=== PATIENT | female | born 1940 | race Caucasian/White ===

== ENCOUNTER → 2017-05-15 | Outpatient (CLI) | payer BC, OTHER | LOC: FIMAGING 10:01 | PROVIDERS: ATTEND Internal Medicine | DX: Z12.31 Encounter for screening mammogram for malignant neoplasm of breast (principal) | CPT/HCPCS: G0202 ==

== ENCOUNTER → 2018-08-26 | Outpatient (CLI) | payer OTHER | LOC: FIMAGING 08:46 | PROVIDERS: ATTEND Internal Medicine | DX: Z12.31 Encounter for screening mammogram for malignant neoplasm of breast (principal) ==

== ENCOUNTER 2019-02-23 15:22 | Observation (INO) | payer OTHER ==
--- NOTE | 2019-02-23 15:36 | EDPHY ---
H & P Time Seen by Provider: 02/23/19 15:31 HPI/ROS: HPI The can call fall yesterday. Lower back pain. 78-year-old female by private vehicle with her daughter and . This patient [place] [facility] [place] She misjudged a door and felt backwards landing on her buttocks. She did not hit her head. She reports that since this time she has had mid lower back pain in the lumbar spine region. She denies any bowel or bladder incontinence. No loss of sensation or weakness in her extremities. She has no history of cancer. Denies any abdominal pain. Denies any extremity pain. She states that the pain is made worse with movement and ambulating. The pain is described as sharp and aching and intermittent in nature. She has had some associated nausea with the pain but no vomiting. ROS: Constitutional: No fever, no chills. No weakness. Eyes: No discharge. No changes in vision. ENT: No sore throat. No nasal congestion or rhinorrhea. Respiratory: No cough. No shortness of breath. Cardiac: No chest pain, no palpitations. Gastrointestinal: No abdominal pain, no vomiting, no diarrhea. As above. Genitourinary: No hematuria. No dysuria or increased frequency with urination. Musculoskeletal: As above. No neck pain. No myalgias or arthralgias. Skin: No rashes. Neurological: No headache. No focal weakness or altered sensation. Past medical history: Hypothyroidism she takes Synthroid. Hypertension. Sleep apnea. She uses CPAP with oxygen at night. Social history: Former smoker. Here with her and daughter. Daughter in 2 other children live nearby. No alcohol. Physical Exam: General Appearance: Alert, no distress. This patient is responding to questions appropriately and in full sentences. This patient appears well- hydrated and well-nourished. Head: Normocephalic atraumatic. Face: Facial bones are stable on palpation. Eyes: Pupils equal and round and reactive to light, no pallor or injection. No lid erythema or edema. Respiratory: There are no retractions, lungs are clear to auscultation with good air movement bilaterally. Chest wall is stable to AP and lateral palpation. Cardiovascular: Regular rate and rhythm. No murmur. Gastrointestinal: Abdomen is soft and nontender, no masses, bowel sounds normal. Neurological: Motor sensory function is intact. Cranial nerves are normal. Cerebellar function intact. Skin: Warm and dry, no rashes. No lacerations, abrasions or contusions. Musculoskeletal: Neck is supple and nontender. The trachea is midline. No midline cervical, thoracic, lumbar or sacral tenderness on palpation. She has vague paraspinal pain bilaterally L2 through L3. It is mild in nature. No soft tissue changes associated. No flank tenderness on palpation. Extremities are symmetrical, full range of motion. All joints in the bilateral upper and bilateral lower extremities range without pain or impingement. No tenderness on palpation of the long bones in the bilateral upper and bilateral lower extremities. Psychiatric: No agitation. No depression. Database: EKG: Imaging: LS spine x-ray series: Significant for an L2 vertebral compression fracture. Estimated height loss is 50%. Interpreted by me. Procedures: Emergency department course: Triage vital signs reviewed and are normal. The patient has been taking ibuprofen as well as Tylenol. She declines stronger pain medication. I did discussed giving her Flexeril as well. She declines this medication. LS spine x-ray series to be obtained. 4:30 p.m., the patient was re-evaluated, she is resting comfortably at this time. Repeat neurologic Assessment is nonfocal. I discussed the results of her x-ray and diagnosis with her family. She has not required any pain medication in the emergency department. She states that she is able to ambulate to the bathroom on her own at home without significant difficulty. I did discuss admission with her. She currently lives with her and her daughters live nearby. She does not want to be admitted to the hospital and does feel comfortable going home. I will discuss the case with interventional radiology to consider kyphoplasty and follow up with them. 4:45 p.m., the patient and family have decided that they do feel more comfortable with the patient being admitted to the hospitalist service. I spoke with Dr. Gilson Sauceda of the hospitalist service. The case was discussed in detail with him. He accepts this patient for admission. I then spoke with Dr. Magy Serna of the interventional radiology service. She reviewed the patient's x -rays. She will consult on the patient in the morning regarding kyphoplasty. At this time neuro spine surgery consultation will be deferred to the hospitalist service. This plan was discussed with the patient and family. Repeat neurologic assessment on the patient is nonfocal. All of the family's questions were answered. The patient will be transferred by ambulance to the [facility]. An IV is was established in the emergency department. The patient was transferred in stable condition to the [facility]. I filled out the appropriate transfer paperwork. Differential Diagnosis: The differential diagnosis on this patient includes but is not limited to lumbar sacral strain, lumbar compression fracture. Epidural compression syndrome, acute radiculopathy, AAA, epidural abscess, unlikely. This represents a partial list of diagnoses considered. These considerations are based on history, physical exam, past history, reassessment and diagnostic testing. Constitutional: Initial Vital Signs Temperature (C) 36.9 C 02/23/19 15:31 Heart Rate 74 02/23/19 15:31 Respiratory Rate 18 02/23/19 15:31 Blood Pressure 137/79 H 02/23/19 15:31 O2 Sat (%) 86 L 02/23/19 15:31 O2 Delivery Mode Room Air Allergies/Adverse Reactions: No Known Allergies Allergy (Verified 02/23/19 18:56) Home Medications: Medication Instructions Recorded Acetaminophen [Tylenol ES 500 mg 500 mg PO Q8H PRN 02/23/19 (*)] Ascorbic Acid [Vitamin C 500 mg 500 mg PO BID 02/23/19 (*)] Aspirin [Aspirin 81mg (*)] 81 mg PO HS 02/23/19 Calcium Carbonate [Tums 500MG (*)] 500 mg PO TID PRN 02/23/19 Ibuprofen [Motrin (*)] 600 mg PO Q8H PRN 02/23/19 Levothyroxine Sodium 88 mcg PO DAILY06 02/23/19 Losartan/Hydrochlorothiazide 1 each PO DAILY 02/23/19 [Losartan-Hctz 100-25 mg Tab] Metoprolol Tartrate [Lopressor 50 50 mg PO BID 02/23/19 mg (*)] Simvastatin [Zocor] 20 mg PO HS 02/23/19 amLODIPine BESYLATE [Amlodipine 5 mg PO HS 02/23/19 Besylate] Medical Decision Making - Diagnostics Imaging Results: Imaging Impressions Lumbar Spine X-Ray 02/23/19 15:32 Impression:L2 compression fracture, moderate severity, with retropulsion of bone posteriorly. This finding could be further characterized with CT or MRI of the lumbar spine is clinically appropriate Lower lumbar degenerative disk disease with grade 1 spondylolisthesis at L4-L5. - Data Points Medications Given: Acetaminophen (Tylenol) 1,000 mg PO Q8 KALEY Stop: 08/22/19 21:59 Last Admin: 02/23/19 21:03 Dose: 1,000 mg Amlodipine Besylate (Norvasc) 5 mg PO HS KALEY Stop: 08/22/19 20:59 Last Admin: 02/23/19 21:05 Dose: 5 mg Ascorbic Acid (Vitamin C) 500 mg PO BID KALEY Stop: 08/22/19 20:59 Last Admin: 02/23/19 21:04 Dose: 500 mg Metoprolol Tartrate (Lopressor) 50 mg PO BID KALEY Stop: 08/22/19 20:59 Last Admin: 02/23/19 21:05 Dose: 50 mg Departure - Departure Disposition: [facility] Acute Clinical Impression: Fall from ground level, Lower back pain, Compression fracture of L2 Condition: Fair
[2019-02-23 18:16] LABS: PLATELET COUNT 199 10^3/uL (150-400)
[2019-02-23] MEDS ORDERED: CALCIUM CARBONATE 500 MG CHEWABLE TAB PO PRN (19:10)
[2019-02-23] MEDS ORDERED: IBUPROFEN 200 MG TAB PO PRN (19:10)
[2019-02-23] MEDS ORDERED: ONDANSETRON 4 MG/2 ML VIAL IVP PRN (19:11)
[2019-02-23] MEDS ORDERED: oxyCODONE IR 5 MG TAB PO PRN (19:11)
--- NOTE | 2019-02-23 20:42 | GHP ---
[f rep st] HISTORY AND PHYSICAL DATE OF ADMISSION: 02/23/2019 HISTORY OF PRESENT ILLNESS: The patient is a 78-year-old female with a history of remote mitral valv e repair who had a mechanical fall yesterday. She was leaving the [facility]. She was expectin g the door to open, it did not. She fell back landing on her buttocks. She had low back pain. She did not lose consciousness. She did not hit her head. She denied any presyncopal type symptoms or p alpitations. She returned home that day after EMS summoned and her pain improved a bit, but it continued to be dif ficult overnight and has not gotten any better. Ultimately today her daughter has noted that she roz lly was not eating, was not feeling well so they brought her in here for further evaluation. No fever, chills, cough, sputum, nausea, vomiting, or diarrhea. She has not had lower extremity weak ness, bowel or bladder incontinence. REVIEW OF SYSTEMS: Complete 10-point review of systems conducted, negative except as noted in the HP I. PAST MEDICAL HISTORY: Hypothyroidism, hypertension, sleep apnea, mitral valve repair, uses CPAP at [facility]. SOCIAL HISTORY: She quit smoking remotely. No alcohol. No tobacco. Originally from [place]. FAMILY HISTORY: Parents . PHYSICAL EXAMINATION: VITAL SIGNS: Temp 36.9, blood pressure 137/79, pulse 74, breathing 18 times a minute, 88% on room air. GENERAL: In no acute distress. HEENT: Sclerae anicteric. Oropharynx cl ear. Mucous membranes moist. NECK: Supple. No lymphadenopathy or JVD. LUNGS: Clear to auscultat ion bilaterally. HEART: S1, S2. ABDOMEN: Soft, nontender, nondistended. LOWER EXTREMITIES: No e lamonte. Calves nontender. SKIN: Without rash. NEUROLOGIC: Nonfocal. LABS: White count 12, hematocrit 43, platelets are 199,000. Sodium 135, potassium 3.2, chloride 96, bicarb 30, BUN 18, creatinine 0.7, glucose 121. Films interpreted by me, low back film shows L2 compression fracture. Discussed the case Dr. Alvarez Motta. ASSESSMENT/PLAN: A 78-year-old female with mechanical fall and compression fracture. 1. Compression fracture. The patient's case was discussed with Interventional Radiology who will pe rform kyphoplasty tomorrow. I have made her n.p.o. past midnight. 2. Hypoxia. The patient has borderline hypoxia on room air. It sounds like this is somewhat of an issue for her with her sleep apnea. Her is going to bring in her machine tonight. We will n ot follow. She does not need pulse ox. Has periodic vitals. 3. Mitral valve repair. The patient does not have symptomatic heart failure. This was done remotel y. 4. Prophylaxis. We will provide SCDs. 5. Hypothyroidism. Check TSH. DISPOSITION: Observation. /[id number]/MODL
[2019-02-23] MEDS: ACETAMINOPHEN 500 MG TAB PO SCH (21:03)
[2019-02-23] MEDS: ASCORBIC ACID 500 MG TAB PO SCH (21:04)
[2019-02-23] MEDS: METOPROLOL TARTRATE 50 MG TAB PO SCH (21:05)
[2019-02-23] MEDS: amLODIPine BESYLATE 5 MG TAB PO SCH (21:05)
[2019-02-23] MEDS: ONDANSETRON DISINTEGRATING 4 MG TAB PO PRN (22:26)
[2019-02-24 05:06] LABS: INR 1.1 (0.83-1.16); PROTIME(PATIENT) 13.8 SEC (12.0-15.0)
[2019-02-24] MEDS: ACETAMINOPHEN 500 MG TAB PO SCH ×3 (05:33→22:12)
[2019-02-24] MEDS: LEVOTHYROXINE 88 MCG TAB PO SCH (05:33)
[2019-02-24] MEDS ORDERED: LOSARTAN/HCTZ 50/12.5 1 TAB PO SCH (09:00)
[2019-02-24] MEDS: METOPROLOL TARTRATE 50 MG TAB PO SCH ×2 (09:18→22:13)
[2019-02-24] MEDS: ASCORBIC ACID 500 MG TAB PO SCH ×2 (09:22→22:12)
[2019-02-24] MEDS: ATORVASTATIN CALCIUM 10 MG TAB PO SCH ×2 (09:22→09:25)
[2019-02-24] MEDS ORDERED: POTASSIUM CL 20 MEQ TAB PO ONE (09:54)
--- NOTE | 2019-02-24 09:59 | PDCONSULT ---
Custom Frame Assembler Note: IR CONSULT NOTE: Patient is a 78 yo F s/p fall now with L2 compression fracture. IR is consulted for vertebral body augmentation. There has been no additional imaging since the radiograph last night. Patient has a hip replacement and artificial heart valve and so would recommend CT of the lumbar spine to evaluate anatomy and fracture configuration. Patient also has NALINI with low O2 sats at baseline. Due to this, will likely have anesthesia present for the procedure. Anesthesia is available at 2 pm on . NPO after midnight tonight. Plan was discussed with Dr. Nunn this morning. Thanks for the consult. Keerthi Cool MD IR
[2019-02-24] MEDS ORDERED: POLYETHYLENE GLYCOL 3350 17 GM PKT PO PRN (10:56)
[2019-02-24] MEDS ORDERED: LACTULOSE 20 GM/30 ML UDCUP PO PRN (10:56)
[2019-02-24] MEDS ORDERED: BISACODYL 10 MG SUPP PR PRN (10:56)
[2019-02-24] MEDS ORDERED: MAGNESIUM HYDROXIDE 30 ML UDCUP PO PRN (10:56)
--- NOTE | 2019-02-24 11:48 | ASMTCASEMG ---
Living Arrangements What is your living Answers: With Spouse arrangement? Who do you live with? Type Of Residence What kind of residence do Answers: House you live in? Discharge Plan Comments Coordination Status Comments Notes: Patient is a 78yo female with a hx of mitral valve repair who had a mechanical fall. Patient is being admitted for a compression fracture, hypoxia, mitral valve repair and hypothyroidism. Patient is currently OBS. PT/OT have been ordered. D/C plan TBD. CM will follow. Date Signed: 02/24/2019 11:41 AM Electronically Signed By:Taisha Shah LCSW
[2019-02-24] MEDS: SENNOSIDES/DOCUSATE SODIUM TAB PO SCH ×3 (13:59→23:02)
--- NOTE | 2019-02-24 15:36 | HOSPPROG ---
Hospitalist Progress Note Assessment/Plan: #Lumbar compression fracture -initially planned for kypho. Dr. Valdivia evaluated and brace fine given minimal pain -PT #Fall: PT evaluating #Pain: controlled with APAP #NALINI: CPAP #Diet: regular #DVT ppx: SCD Disp: inpatient admission for PT, awaiting brace Subjective: min pain this morning Objective: Vital Signs Temp Pulse Resp BP Pulse Ox 36.9 C 67 16 158/96 H 92 02/24/19 15:09 02/24/19 15:09 02/24/19 15:09 02/24/19 15:09 02/24/19 15:09 Laboratory Results 02/23/19 17:30 02/23/19 17:30 02/23/19 02/24/19 02/25/19 05:59 05:59 05:59 Intake Total 500 Output Total 1450 800 Balance -950 -800 PT 13.8 SEC (12.0-15.0) 02/24/19 04:25 INR 1.10 (0.83-1.16) 02/24/19 04:25 - Time Spent With Patient Time Spent with Patient: greater than 35 minutes Time Spent with Patient: Greater than 35 minutes spent on this patients care, greater than 50% of time spent counseling, educating, and coordinating care regarding the above mentioned plan. - Physical Exam Constitutional: no apparent distress Eyes: PERRL Ears, Nose, Mouth, Throat: moist mucous membranes Cardiovascular: regular rate and rhythym Respiratory: no respiratory distress Gastrointestinal: normoactive bowel sounds Genitourinary: no bladder fullness Skin: warm Musculoskeletal: full muscle strength Neurologic: AAOx3, CN II-XII Intact Psychiatric: interacting appropriately ICD10 Worksheet Patient Problems: Problems Problem Status Onset Compression fracture of L2 Acute Fall from ground level Acute Lower back pain Acute
[2019-02-24] MEDS: ONDANSETRON DISINTEGRATING 4 MG TAB PO PRN (16:58)
--- NOTE | 2019-02-24 18:09 | GCON ---
[f rep st] CONSULTATION NEUROSURGERY CONSULTATION DATE OF CONSULTATION: 02/24/2019 The patient was seen and evaluated at approximately 3 p.m. on the general care floor at [facility]. HISTORY OF PRESENT ILLNESS: The patient is a 78-year-old lady with a history of a remote mitral valv e repair. She was expecting a door to open at the [facility] center, and when it did not, she took a tumble onto her back. She did not lose consciousness. She was seen by EMS and, given that she did not hav e any lower extremity symptoms, went home on her own. She was ambulatory at that time but continued to have back pain. Therefore, she presented back to the Urgent Care on Sunday, 2 days ago. She wa s then seen to have an L2 compression fracture on x-rays and was transferred here to [facility] for pain control. She has never had any neurologic symptoms. She did have a CT of the laura mbar spine which reveals a compression fracture at L2 with a small amount of buckling of the posterio r cortex. Interventional Radiology was apparently consulted for kyphoplasty but told her that it was likely too high of a risk. We were therefore consulted for further management. She does not have a ny symptoms at all at this time. She has been ambulatory here in the hospital with a walker with mod erate pain only. She does not have any kyphosis at this level. REVIEW OF SYSTEMS: A 10-point review of systems is negative other than described above in HPI. PAST MEDICAL HISTORY: 1. Hypothyroidism. 2. Hypertension. 3. Obstructive sleep apnea. 4. Mitral valve repair.. SOCIAL HISTORY: The patient is a remote smoker, but she quit many years ago. She denies any alcohol or other drug use. FAMILY HISTORY: Reviewed but noncontributory to this admission. ALLERGIES: No known drug allergies. MEDICATIONS: Reviewed within the electronic medical record, but I have no additions at this time. PHYSICAL EXAM: Currently she is afebrile with normal stable vital signs. She is awake, alert, and o riented x3. Her cranial nerves 2 through 12 are grossly normal. She has full 5/5 strength of the de ltoid, biceps, triceps, wrist flexion and extension, building code administrator bilaterally. In the lower extremities, she has 5/5 strength of the hip flexors and extensors, knee flexors and extensors, and plantar flexion a nd dorsiflexion. Sensation is fully intact. Deep tendon reflexes are normal. IMAGING: See HPI. ASSESSMENT AND PLAN: The patient is a 78-year-old woman with an L2 compression fracture. I discusse d with her the options, but given that she has been up and ambulatory here in the hospital with only moderate pain, we will get her an LSO brace and see if this helps her pain control even better. If i t does not, then I did discuss with her the option of a kyphoplasty. While this might be slightly hi gher risk than normal, I think this can be done easily without any complications. The chances are th at she will be fine in a brace, and we will check on her again tomorrow to see how her pain control i s doing. I do not think that, given she has been getting up and around, there is any reason to keep her in bed at this time. Please do not hesitate to contact us with any further questions or concerns at any time. Thanks for the kind consultation. /[id number]/MODL
[2019-02-24] MEDS ORDERED: SENNOSIDES/DOCUSATE SODIUM TAB PO SCH (21:00)
[2019-02-24] MEDS ORDERED: ATORVASTATIN CALCIUM 10 MG TAB PO SCH (21:00)
[2019-02-24] MEDS: amLODIPine BESYLATE 5 MG TAB PO SCH (22:14)
[2019-02-25] MEDS ORDERED: LOSARTAN/HCTZ 50/12.5 1 TAB PO SCH (06:00)
[2019-02-25] MEDS: LEVOTHYROXINE 88 MCG TAB PO SCH (06:29)
[2019-02-25] MEDS: ACETAMINOPHEN 500 MG TAB PO SCH ×2 (06:29→14:01)
--- NOTE | 2019-02-25 07:42 | NEUSURGPN ---
Assessment/Plan: Assessment: 78 yr old F with L2 compression fracture Plan: -Salvage Supervisor to fit with LSO -Ok to continue to ambulate without brace, patient has been stable with ambulation prior to brace -Will assess pain in brace, if not controlled will consider kyphoplasty -Ok for regular diet Discussed patient with Dr Valdivia Subjective: back pain, no leg pain Objective: AxOx4 MAEx4 5/5 BLE Sensation intact to light touch BLE non tender to palpation over lumbar spine Neuro Check Frequency: per routine Urinary Catheter in Place: No - Physician Discussed Patient with : Skip Neurosurgery Physical Exam - Vitals, I&O, Labs I and O 02/24/19 02/25/19 02/26/19 05:59 05:59 05:59 Intake Total 500 500 Output Total 1450 1100 Balance -950 -600 Weight 81.647 kg Intake: Oral (ml) 500 500 Output: Urine (ml) 1450 1100 Toilet 1450 1100 Other: Number of Voids Bedside Commode 1 1 Toilet 3 2 Vital Signs Temp Pulse Resp BP Pulse Ox 36.7 C 54 L 16 134/78 H 93 02/25/19 03:52 02/25/19 03:52 02/25/19 03:52 02/25/19 06:29 02/25/19 03:52 Laboratory Results 02/23/19 17:30 02/23/19 17:30 ICD10 Worksheet Patient Problems: Problems Problem Status Onset Compression fracture of L2 Acute Fall from ground level Acute Lower back pain Acute
[2019-02-25 07:45] VITALS: BP 145/89
[2019-02-25] MEDS: ONDANSETRON DISINTEGRATING 4 MG TAB PO PRN (08:10)
[2019-02-25] MEDS: ASCORBIC ACID 500 MG TAB PO SCH (08:12)
[2019-02-25] MEDS: SENNOSIDES/DOCUSATE SODIUM TAB PO SCH (08:12)
[2019-02-25] MEDS: METOPROLOL TARTRATE 50 MG TAB PO SCH (08:12)
--- NOTE | 2019-02-25 12:42 | GDS ---
[f rep st] DISCHARGE SUMMARY DISCHARGE DIAGNOSES: 1. Fall. 2. L2 compression fracture. 3. Hypothyroidism. 4. Hypertension. 5. Obstructive sleep apnea. 6. Mitral valve repair. CONSULTATIONS: 1. Interventional Radiology. 2. Neurosurgery. HISTORY OF PRESENT ILLNESS: A 78-year-old female, history of remote mitral valve repair who was expe cting a door to close at the [facility], but when it did not, she bumped it and fell on her back. She did not hit her head or have loss of consciousness. She was ambulatory but developed lower back pain. She had L2 compression fracture on x-rays. CT revealed compression fracture with small amoun t of buckling in the posterior cortex. IR was initially consulted for kyphoplasty, but was told it w as too high risk. HOSPITAL COURSE BY PROBLEM: 1. L2 compression fracture: Evaluated by Neurosurgery. We will treat with pain management and brac e initially. If this is not effective, can follow up for outpatient kyphoplasty. Will follow up radhika Valdivia in one month for x-rays. 2. Hypothyroidism: Resume home medications. 3. Hypertension: Resume home medications. 4. Obstructive sleep apnea, stable. 5. History of mitral valve repair, stable. DISPOSITION: Patient is stable for discharge home. Cleared by PT. FOLLOWUP: Dr. Valdivia in 1 month for x-rays. MEDICATIONS: See medication reconciliation. PHYSICAL EXAMINATION: VITAL SIGNS: Temperature 36.7, blood pressure 145/89, heart rate in 70s, resp irations 14, 93% on room air. GENERAL: She is smiling, no acute distress. HEENT: PERRLA. Moist m ucous membranes. CV: Regular rate and rhythm. LUNGS: Clear. ABDOMEN: Soft, nontender, nondisten ded. Positive bowel sounds. : No Fernandez. MUSCULOSKELETAL: Lumbar brace in place. NEURO: Crani al nerves 2 through 12 intact. PSYCH: Alert and oriented x3. Time spent on discharge greater 30 minutes bedside counseling patient and family on medications, foll ow-up plan. /[id number]/MODL
== END 2019-02-25 16:20 | disposition home or self-care (01) ==
LOC: CED 15:22 → CEDHOLD 16:51 → F3N 18:37
PROVIDERS: ADMIT Internal Medicine; ATTEND Internal Medicine
DX: S32.028A Other fracture of second lumbar vertebra, initial encounter for closed fracture (principal); E03.9 Hypothyroidism, unspecified; I10 Essential (primary) hypertension; G47.33 Obstructive sleep apnea (adult) (pediatric); Z98.890 Other specified postprocedural states; W19.XXXA Unspecified fall, initial encounter; Y92.838 Other recreation area as the place of occurrence of the external cause
CPT/HCPCS: 72100; 72131; 97161; 97166; 97530; 97535; 99285; G0378

== ENCOUNTER → 2019-04-01 | Outpatient (CLI) | payer OTHER | LOC: EMCIMAGING 10:44 ==

== ENCOUNTER → 2019-04-29 | Outpatient (CLI) | payer OTHER | LOC: EMCIMAGING 09:21 ==